=== PATIENT | male | born 1995 | race Caucasian/White ===

== ENCOUNTER 2021-07-20 13:07 | Emergency (ER) | payer BC ==
[2021-07-20 13:58] LABS: HEMOGLOBIN 16.4 gm/dl (14.0-17.5); RED BLOOD COUNT 5.18 M/UL (4.20-5.50); WHITE BLOOD COUNT 8.5 K/UL (4.5-11.0)
[2021-07-20 14:17] LABS: BUN/CREATININE RATIO 11 (0-10)
== END 2021-07-20 18:30 | disposition home or self-care (01) ==
LOC: ER1 13:07
PROVIDERS: Emergency Medicine
DX: G43.909 Migraine, unspecified, not intractable, without status migrainosus (principal)
CPT/HCPCS: 70450; 80053; 84484; 85025; 93005; 99284

== ENCOUNTER 2021-08-29 22:26 | Emergency (ER) | payer BC | END 2021-08-30 00:55 | disposition home or self-care (01) | LOC: ER1 22:26 | DX: S02.2XXA Fracture of nasal bones, initial encounter for closed fracture (principal); S02.85XA Fracture of orbit, unspecified, initial encounter for closed fracture; S02.40CA Maxillary fracture, right side, initial encounter for closed fracture; W51.XXXA Accidental striking against or bumped into by another person, initial encounter | CPT/HCPCS: 70486; 99283 ==